=== PATIENT | male | born 1960 | race Caucasian/White ===

== ENCOUNTER 2016-09-07 06:20 | Day surgery (SDC) | payer BC, OTHER ==
[2016-09-03 09:41] VITALS: BMI 27.1
[2016-09-07] MEDS ORDERED: BUPIVACAINE HCL/PF 2.5 MG/ML - 30 ML VIAL IJ ONE (07:00)
[2016-09-07] MEDS ORDERED: EPINEPHrine 1:1,000 1 MG/1 ML - 30ML VIAL (INJECTION) ONE (07:00)
[2016-09-07] MEDS ORDERED: ceFAZolin SODIUM 1 GM VIAL ONE (07:15)
[2016-09-07] MEDS ORDERED: SUCCINYLCHOLINE CHLORIDE 200 MG/10 ML VIAL ONE (07:15)
[2016-09-07] MEDS ORDERED: PROPOFOL 20 ML ONE ×2 (07:15)
[2016-09-07] MEDS ORDERED: MIDAZOLAM HCL 2 MG/2 ML SINGLE DOSE VIAL ONE (07:15)
[2016-09-07] MEDS ORDERED: DEXAMETHASONE SOD PHOSPHATE 4 MG/1 ML VIAL ONE (07:16)
[2016-09-07] MEDS ORDERED: LIDOCAINE HCL 2% JELLY (5 ML/TUBE) ONE (07:16)
[2016-09-07] MEDS ORDERED: ONDANSETRON 4 MG/2 ML VIAL ONE (07:16)
[2016-09-07] MEDS ORDERED: LIDOCAINE HCL/PF 2% SDV 5ML VIAL ONE (07:16)
[2016-09-07] MEDS ORDERED: KETOROLAC TROMETHAMINE 30 MG/1 ML VIAL ONE (07:16)
[2016-09-07] MEDS ORDERED: ePHEDrine SULFATE 50 MG/1 ML AMPULE ONE (07:55)
[2016-09-07] MEDS ORDERED: BUPIVACAINE HCL/PF 0.25% (2.5MG/ML) 10 ML VIAL IJ ONE (08:12)
[2016-09-07 09:27] VITALS: PULSE 68; TEMP 98.2
[2016-09-07 09:54] VITALS: BP 130/82
[2016-09-07] MEDS ORDERED: oxyCODONE HCL 5 MG TABLET PO PRN ×2 (10:03)
[2016-09-07] MEDS ORDERED: ONDANSETRON 4 MG/2 ML VIAL IVPUSH PRN (10:03)
[2016-09-07] MEDS ORDERED: LACTATED RINGERS SOLUTION 1,000 ML IV SCH (10:15)
--- NOTE | 2016-09-07 11:14 | OP ---
DATE OF OPERATION: 09/07/2016 SURGEON: Carly Duval MD MISSILE CONTROL PILOT: CHATO Jason PREOPERATIVE DIAGNOSES: 1. Left knee medial and lateral meniscal tear. 2. Left knee cartilage injury. 3. Left knee synovitis. POSTOPERATIVE DIAGNOSES: 1. Left knee medial and lateral meniscal tear. 2. Left knee cartilage injury. 3. Left knee synovitis. PROCEDURE: 1. Left knee arthroscopy, partial meniscectomy, medial and lateral meniscus. 2. Left knee arthroscopy with chondroplasty and abrasion-plasty. 3. Left knee arthroscopy, synovectomy/major (CPT codes 86927, 86942, 18624). FINDINGS: 1. Medial meniscus body and posterior horn tear. 2. Lateral meniscus posterior horn tear. 3. Synovitis, patellofemoral, medial and lateral notch area. 4. Central grade 3 to 4 cartilage injury, medial femoral condyle. 5. ACL and PCL intact. 6. Grade 1 to 2 cartilage, medial femoral condyle and tibial plateau. 7. Central grade 1 to 2 cartilage injury trochlea with grade 4 changes, superior pole, patella. PROCEDURE: Informed consent was obtained. The patient was taken to the operating room where the left lower extremity was prepped and draped in a sterile fashion. A tourniquet was placed on the left upper thigh but not inflated. Using standard arthroscopic technique, a lateral incision and portal were made which allowed for introduction of the camera into the suprapatellar bursa. This was then taken to the medial joint line where under direct visualization a medial incision and portal were made. Excessive synovium noted in the medial, lateral, patellofemoral and notch area was removed by the upbiting shaver and Bovie cautery. This was found to bring inflammatory tissue into the joint surface, a source of joint pain and dysfunction. Probing of the medial and lateral meniscus found tears described in the findings. These were removed with an upbiting shaver and taken back to a stable rim. Grade 2-3 degenerative changes were treated with chondroplasty, removing all flaking surfaces with low-setting Bovie used along the periphery. Grade 4 changes were treated with abrasion-plasty. All areas of the knee were once again reexamined. The knee was then drained. A single suture was placed on all portals. Sterile dressing was placed. The patient was transferred to the recovery room. CARLY DUVAL M.D. [id number] MTDD
--- NOTE | 2016-09-12 15:40 | PATH ---
Surgical Pathology Report Patient Name: ZAYRA WASHINGTON [facility]. Rec. #: [id number] /Age/Gender: 1960 (Age: 55) / M Account: [id number] Location: [facility] AMBULATORY Taken: 09/07/2016 Received: 09/07/2016 Reported: 09/12/2016 Physicians: Derek Edmonds M.D. Specimen(s) Received LEFT KNEE SHAVINGS Clinical History Left knee internal derangement Final Diagnosis KNEE, LEFT, ARTHROSCOPIC SHAVINGS: FIBROSYNOVIAL TISSUE AND CARTILAGE. Electronically Signed Marybel Lopes M.D. Gross Description Received in formalin, labeled "left knee shavings," is a 3.5 x 2.5 x 0.4 cm. aggregate of cadena-yellow soft tissue fragments. A branch service representative portion is submitted in one cassette. /09/07/2016 saudi/09/07/2016
== END 2016-09-07 09:56 | disposition home or self-care (01) ==
LOC: FASU 06:20
PROVIDERS: ATTEND Orthopaedic Surgery
PROC: 0SBD4ZZ Excision of Left Knee Joint, Percutaneous Endoscopic Approach (ICD-10-PCS; 2016-09-07)
PROC: 0SBD4ZZ Excision of Left Knee Joint, Percutaneous Endoscopic Approach (ICD-10-PCS; 2016-09-07)
PROC: 0SBD4ZZ Excision of Left Knee Joint, Percutaneous Endoscopic Approach (ICD-10-PCS; principal; 2016-09-07 07:56)
DX: S83.242A Other tear of medial meniscus, current injury, left knee, initial encounter (principal); S83.282A Other tear of lateral meniscus, current injury, left knee, initial encounter; S83.8X2A Sprain of other specified parts of left knee, initial encounter; M65.862 Other synovitis and tenosynovitis, left lower leg; X58.XXXA Exposure to other specified factors, initial encounter; Y93.9 Activity, unspecified; Y92.9 Unspecified place or not applicable
CPT/HCPCS: 88304-TC; 94760

== ENCOUNTER 2022-05-11 20:18 | Emergency (ER) | payer BC ==
[2022-05-11 20:34] VITALS: RESP 18; TEMP 98.8; BMI 26.5
[2022-05-11] MEDS ORDERED: predniSONE 20 MG TABLET (UD) PO ONE (20:40)
[2022-05-11] MEDS ORDERED: ALBUTEROL SO4 2.5/IPRATROPIUM 0.5 INH SOL 3 ML VIAL.NEB. NEB ONE (20:54)
[2022-05-11] MEDS ORDERED: predniSONE 20 MG TABLET (UD) ONE (20:54)
[2022-05-11] MEDS: ALBUTEROL SO4 2.5/IPRATROPIUM 0.5 INH SOL 3 ML VIAL.NEB. NEB SCH ×3 (21:12→22:10)
[2022-05-11 21:31] LABS: HEMATOCRIT 41.5 % (35.4-49); HEMOGLOBIN 14.9 G/dL (11.7-16.9); MCH 31.7 pg (25.7-33.7); MEAN CELL VOLUME 88.2 fl (80-96); MEAN PLT VOLUME 6.8 fl (7.5-11.1); PLATELET COUNT 279.3 10^3/uL (134-434); RBC 4.71 10^6/uL (4.00-5.60); RDW 13.6 % (11.9-15.9); WHITE BLOOD COUNT 10.4 10^3/uL (4.0-10.8)
[2022-05-11 21:38] LABS: ALBUMIN 4.5 g/dl (3.4-5.0); CALCIUM 9.2 mg/dl (8.5-10); CREATININE 0.8 mg/dl (0.55-1.3); TOT PROT 7.5 g/dl (6.4-8.2)
[2022-05-11] MEDS ORDERED: guaiFENesin/CODEINE 10 ML UNIT-DOSE CUPS PO STA (22:08)
[2022-05-11] MEDS ORDERED: guaiFENesin/CODEINE 10 ML UNIT-DOSE CUPS ONE (22:12)
[2022-05-11 22:18] VITALS: BP 167/86; PULSE 105
== END 2022-05-11 22:56 | disposition home or self-care (01) ==
LOC: FER 20:18
PROC: 3E0F7GC Introduction of Other Therapeutic Substance into Respiratory Tract, Via Natural or Artificial Opening (ICD-10-PCS; principal; 2022-05-11)
DX: R05.8 Other specified cough (principal)
CPT/HCPCS: 36415; 71045-TC-FY; 80053; 85027; 99285-25